=== PATIENT | female | born 1945 | race Caucasian/White ===

== ENCOUNTER → 2017-05-14 | Outpatient (CLI) | payer OTHER ==
[~2017-05-14] MED LIST: ASPIRIN ADULT L81 M1 PO; AUGMENTIN 875875 MG PO; BACTRIM DS 8001 TA1 PO; BP MED; OMEPRAZOLE D/R20 MG PO; PYRIDIUM200 MG PO; TYLENOL W/CODEI1 TA2 PO; VERAPAMIL240 MG PO
--- NOTE | ~2017-05-14 | ST ---
[place], [place] EXERCISE STRESS TEST REPORT [id number] UNIT #: [id number] ROOM: DOCTOR: BRENDON OSBORNE MD BIRTHDATE: [birth year] DOS: 05/14/2017 Lexiscan portion of the Lexiscan Cardiolite. Baseline cardiogram, normal sinus rhythm with ST depression in the lateral leads, 0.4 mg of Lexiscan, duration of 10 seconds of a 1-minute test duration. There is mild ST depression in the lateral leads. With Lexiscan, no chest discomfort. Lexiscan isolated PVCs. Blood pressure and heart rate response was normal. FINAL IMPRESSION: Mildly abnormal EKG response with mild ST depression in the lateral leads. The patient had chest pressure, no chest pain. Blood pressure and heart rate normal. Nuclear images will be reported separately. BRENDON OSBORNE MD CM:STRESS:EXERCISE STRESS TEST REPORT [id number] BRENDON OSBORNE MD
== END | disposition home or self-care (01) ==
LOC: CARD 02:25
DX: R94.31 Abnormal electrocardiogram [ECG] [EKG] (principal); R07.89 Other chest pain

== ENCOUNTER → 2017-07-11 | Outpatient (CLI) | payer OTHER ==
[2017-07-11 10:16] LABS: BASO % 0.5 % (0.0-1.0); EOS # 0.1 10*3/uL (0.0-0.4); EOS % 0.9 % (1.0-4.0); HEMATOCRIT 38.5 % (37.0-47.0); HEMOGLOBIN 13.6 g/dl (12.0-16.0); LYMPH # 2.2 10*3/uL (1.3-4.4); LYMPH % 27.4 % (27.0-41.0); MEAN CELL VOLUME 89.5 fl (81.0-99.0); MEAN CORPUSCULAR HGB 31.6 pg (27.0-31.0); MEAN CORPUSCULAR HGB CONC 35.3 g/dl (33.0-37.0); MEAN PLATELET VOLUME 8.4 fl (9.6-12.3); MONO # 0.8 10*3/uL (0.1-1.0); MONO % 10.4 % (3.0-9.0); NEUT # 4.9 10*3/uL (2.3-7.9); NEUT % 60.4 % (47.0-73.0); PLATELET COUNT AUTOMATED 344 10*3/uL (130-400); RED CELL DISTRI WIDTH 12.9 % (0-14.5); WHITE BLOOD COUNT 8.1 10*3/uL (4.8-10.8)
[2017-07-11 10:41] LABS: BUN 7 mg/dl (7-24); CARBON DIOXIDE 26 mmol/L (21-32); CHLORIDE 96 mmol/L (98-107); CHOLESTEROL 235 mg/dL (<200); EST GLOM FILT AFRICAN AMERICAN > 60 ml/min; GLUCOSE 94 mg/dL (65-99); HDL CHOLESTEROL 110 mg/dl (40-60); LDL CHOLESTEROL 114 mg/dL (9-159); POTASSIUM 4.7 mmol/L (3.5-5.1); SODIUM 131 mmol/L (136-145); TRIGLYCERIDES 54 mg/dl (<150); VLDL CHOLESTEROL 11 mg/dL (6-40)
== END | disposition home or self-care (01) ==
LOC: LAB 09:36
PROVIDERS: Family Medicine
DX: I10 Essential (primary) hypertension (principal); K21.9 Gastro-esophageal reflux disease without esophagitis

== ENCOUNTER 2018-08-24 11:57 | Emergency (ER) | payer OTHER ==
[~2018-08-24] VITALS: Ht 157.4 cm; Wt 67.1 kg
== END 2018-08-24 13:32 | disposition home or self-care (01) ==
LOC: ED 11:57
DX: S52.592A Other fractures of lower end of left radius, initial encounter for closed fracture (principal); Z79.899 Other long term (current) drug therapy; Z79.82 Long term (current) use of aspirin; W07.XXXA Fall from chair, initial encounter; Y93.89 Activity, other specified; Y92.89 Other specified places as the place of occurrence of the external cause; Y99.8 Other external cause status

== ENCOUNTER → 2019-06-18 | Outpatient (CLI) | payer OTHER ==
[2019-06-18 10:25] LABS: CHOLESTEROL 241 mg/dL (<200); HDL CHOLESTEROL 119 mg/dl (40-60); LDL CHOLESTEROL 111 mg/dL (9-159); TRIGLYCERIDES 57 mg/dl (<150); VLDL CHOLESTEROL 11 mg/dL (6-40)
== END | disposition home or self-care (01) ==
LOC: LAB 09:34
PROVIDERS: Family Medicine
DX: E78.2 Mixed hyperlipidemia (principal)

== ENCOUNTER → 2019-07-01 | Outpatient (CLI) | payer OTHER | END | disposition home or self-care (01) | LOC: US 11:02 | DX: M79.604 Pain in right leg (principal); M79.605 Pain in left leg; R09.89 Other specified symptoms and signs involving the circulatory and respiratory systems; R60.0 Localized edema; R06.02 Shortness of breath; R10.2 Pelvic and perineal pain; R10.31 Right lower quadrant pain; I25.10 Atherosclerotic heart disease of native coronary artery without angina pectoris; Z91.81 History of falling ==

== ENCOUNTER → 2019-11-06 | Outpatient (CLI) | payer OTHER | END | disposition home or self-care (01) | LOC: RAD 08:42 | DX: M81.0 Age-related osteoporosis without current pathological fracture (principal); M16.11 Unilateral primary osteoarthritis, right hip; I10 Essential (primary) hypertension; Z78.0 Asymptomatic menopausal state; Z90.710 Acquired absence of both cervix and uterus ==

== ENCOUNTER 2020-10-13 12:08 | Inpatient (IN) | payer OTHER ==
[2020-10-13] VITALS (7 sets, daily range): BP systolic 125–157; BP diastolic 61–73
[~2020-10-13] VITALS: Ht 154.9 cm; Wt 66.8 kg
[2020-10-13 12:47] LABS: BASO % 0.3 % (0.0-1.0); EOS # 0.2 10*3/uL (0.0-0.4); EOS % 2.6 % (1.0-4.0); HEMATOCRIT 40.2 % (37.0-47.0); LYMPH # 0.9 10*3/uL (1.3-4.4); MEAN CELL VOLUME 87.4 fl (81.0-99.0); MEAN CORPUSCULAR HGB 30.7 pg (27.0-31.0); MEAN CORPUSCULAR HGB CONC 35.1 g/dl (33.0-37.0); MEAN PLATELET VOLUME 8.8 fl (9.6-12.3); MONO # 0.6 10*3/uL (0.1-1.0); MONO % 10.1 % (3.0-9.0); NEUT # 4.1 10*3/uL (2.3-7.9); NEUT % 71.3 % (47.0-73.0); PLATELET COUNT AUTOMATED 306 10*3/uL (130-400); RED CELL DISTRI WIDTH 11.8 % (0-14.5); WHITE BLOOD COUNT 5.8 10*3/uL (4.8-10.8)
[2020-10-13 12:58] LABS: ACT PARTIAL THROMBO TIME 28.9 SECONDS (20.0-32.1); INTERNATIONAL NORM RATIO 0.9 (2.0-3.5)
[2020-10-13 13:04] LABS: ALBUMIN 3.6 gm/dl (3.1-4.5); ALKALINE PHOSPHATASE 84 U/L (45-117); BUN 15 mg/dl (7-24); CHLORIDE 96 mmol/L (98-107); CREATININE 0.82 mg/dL (0.55-1.02); POTASSIUM 3.3 mmol/L (3.5-5.1); SGOT/AST 22 IU/L (3-35); SGPT/ALT 17 U/L (12-78); SODIUM 130 mmol/L (136-145); TOTAL PROTEIN 7.8 gm/dL (6.4-8.2)
[2020-10-13 13:05] LABS: TROPONIN I < 0.015 ng/ml (<0.045)
--- NOTE | 2020-10-13 14:14 | NUR ---
PT RESTING IN BED WITH CALL LIGHT IN REACH.NO NEEDS AT THIS TIME.
--- NOTE | 2020-10-13 14:28 | NUR ---
PT'S FAMILY UPDATED AND TO CALL BACK LATER FOR ADDITIONAL UPDATE ON PLAN OF CARE.
--- NOTE | 2020-10-13 16:43 | NUR ---
PT IS EATING DINNER TRAY. PATIENT WITHOUT COMPLAINTS. CALL LIGHT IN REACH.
--- NOTE | 2020-10-13 22:52 | NUR ---
A 75, admitted to 4E, under the services of AMEE Benavides DO with a diagnosis of SUSPECTED COVID-19. Chief complaint is SHORTNESS OF BREATH. Patient arrived via stretcher from ER. Monitor applied. Initial assessment completed. Vital signs taken and recorded. AMEE BENAVIDES DO notified of admission to the unit. Orders received. See assessment for past medical history, medications and allergies. Patient and/or family oriented to unit. [facility] visitation policy reviewed. Clothing/patient valuable form completed. HUANG KEEN
[2020-10-13] MEDS ORDERED: ROSUVASTATIN CA10 MG PO (23:11)
[2020-10-14] VITALS: BP 121/60
--- NOTE | 2020-10-14 07:21 | NUR ---
Shift chart check completed.24 HR chart check completed.
[2020-10-14 07:59] LABS: BASO % 0.2 % (0.0-1.0); EOS % 0.2 % (1.0-4.0); HEMATOCRIT 36.3 % (37.0-47.0); LYMPH # 1.1 10*3/uL (1.3-4.4); LYMPH % 22.6 % (27.0-41.0); MEAN CELL VOLUME 87.9 fl (81.0-99.0); MEAN CORPUSCULAR HGB 30.5 pg (27.0-31.0); MEAN CORPUSCULAR HGB CONC 34.7 g/dl (33.0-37.0); MEAN PLATELET VOLUME 9.1 fl (9.6-12.3); MONO # 0.6 10*3/uL (0.1-1.0); MONO % 12.5 % (3.0-9.0); NEUT # 3.1 10*3/uL (2.3-7.9); NEUT % 64.3 % (47.0-73.0); PLATELET COUNT AUTOMATED 304 10*3/uL (130-400); RED BLOOD COUNT 4.13 10*6/uL (4.10-5.10); RED CELL DISTRI WIDTH 11.8 % (0-14.5); WHITE BLOOD COUNT 4.9 10*3/uL (4.8-10.8)
[2020-10-14 08:00] VITALS: BP 130/80; BP 145/58
[2020-10-14 08:25] LABS: ALKALINE PHOSPHATASE 69 U/L (45-117); BUN 11 mg/dl (7-24); CHLORIDE 100 mmol/L (98-107); CREATININE 0.65 mg/dL (0.55-1.02); LDH 157 U/L (84-246); POTASSIUM 3.6 mmol/L (3.5-5.1); SGOT/AST 18 IU/L (3-35); SGPT/ALT 16 U/L (12-78); SODIUM 132 mmol/L (136-145); TOTAL PROTEIN 6.8 gm/dL (6.4-8.2)
--- NOTE | 2020-10-14 09:00 | NUR ---
[employer] Consultant in to talk to patient. Patient states lives at home with . There are no steps in the home. Physician: ambika chau Pharmacy: [facility] health services: none Patient's level of ADLs: INDEPENDENT Patient has working utilities: all working DME: none Follow-up physician's appointment after d/c: will be amde by hospitalist nurse director upon discharge Does patient want to access PORTAL?: no Discharge plan discussed with patient, she lives at home with hsenmanuel, she is independent in adls and ambulation, no home oxygen, states she has inhalers she uses. patient stated she would return home when discharged. discussed with her [facility] and educated her on the services they provide. she declined any home needs at this time, case management will follow. LEE RAYMOND
--- NOTE | 2020-10-14 10:32 | NUR ---
ON ASSESSMENT PT ALERT, ORIENTED, IN NO ACUTE DISTRESS. OCCASIONAL CONGESTED COUGH.
[2020-10-14 12:00] VITALS: BP 131/58
[2020-10-14 16:00] VITALS: BP 138/65
[2020-10-14 20:00] VITALS: BP 131/65
--- NOTE | 2020-10-14 20:00 | NUR ---
PT RESTING IN BED. RESP-EASY AND REGULAR. OXYGEN IN USE. NO C/O AT THIS TIME. CALL LIGHT IN REACH.
--- NOTE | 2020-10-14 22:45 | NUR ---
PLACED PATIENT ON NOCTURNAL PULSE OX PER ORDER
[2020-10-15] VITALS: BP 138/59
--- NOTE | 2020-10-15 | NUR ---
PT RESTING IN BED. NO C/O AT THIS TIME. NO C/O AT THIS TIME. CALL LIGHT IN REACH. SEE SHIFT ASSESSMENT.
--- NOTE | 2020-10-15 04:30 | NUR ---
SLEEPING IN BED. RESP-EASY AND REGULAR. CALL LIGHT IN REACH.
--- NOTE | 2020-10-15 06:00 | NUR ---
PT AWAKE LYING ON HER LEFT SIDE. RESP-EASY AND REGULAR. NO C/O AT THIS TIME. CALL LIGHT IN REACH.
[2020-10-15 06:21] LABS: HEMATOCRIT 35.7 % (37.0-47.0); MEAN CELL VOLUME 88.6 fl (81.0-99.0); MEAN CORPUSCULAR HGB 30.8 pg (27.0-31.0); MEAN CORPUSCULAR HGB CONC 34.7 g/dl (33.0-37.0); MEAN PLATELET VOLUME 8.8 fl (9.6-12.3); PLATELET COUNT AUTOMATED 305 10*3/uL (130-400); RED BLOOD COUNT 4.03 10*6/uL (4.10-5.10); RED CELL DISTRI WIDTH 11.9 % (0-14.5); WHITE BLOOD COUNT 4.1 10*3/uL (4.8-10.8)
[2020-10-15 06:37] LABS: BUN 10 mg/dl (7-24); CHLORIDE 101 mmol/L (98-107); CREATININE 0.58 mg/dL (0.55-1.02); POTASSIUM 3.6 mmol/L (3.5-5.1); SODIUM 132 mmol/L (136-145)
[2020-10-15 06:49] LABS: ATYPICAL LYMPHS 1 % (0-0); TOTAL CELLS COUNTED 100 #CELLS
[2020-10-15 06:54] LABS: PLATELET SUFFICIENCY NORMAL (NORMAL)
[2020-10-15 10:01] LABS: FERRITIN 300.3 ng/mL (10.0-291.0)
[2020-10-15 10:57] LABS: ABG BASE EXCESS 0.3 mmol/L (-2.0-2.0); ARTERIAL BLOOD GAS PH 7.485 (7.35-7.45)
[2020-10-15 12:00] VITALS: BP 137/54
--- NOTE | 2020-10-15 15:07 | NUR ---
0800 Assumed care of pt. Report received. Pt AOX4, bed in low position, call light in reach. All needs met at this time, per pt. Pt remains on COVID isolation precautions, and remains on 2L NC. 1130 MD at bedside. Per MD, possible discharge tomorrow, will continue to monitor pt's need for O2. Pt agreeable.
[2020-10-15 16:00] VITALS: BP 149/61
[2020-10-15 20:00] VITALS: BP 116/83
[2020-10-16] VITALS: BP 139/60
[2020-10-16 04:00] VITALS: BP 139/60
[2020-10-16 08:00] VITALS: BP 168/63
--- NOTE | 2020-10-16 09:03 | NUR ---
0700 Assumed care of pt. Pt resting in bed, AOX4, breathing easy on room air, VS obtained. Call light in reach, all needs met at this time. Clustered care as pt is in COVID isolation. Personal care items replenished in room, breakfast tray delivered to bedside. Will continue to monitor. 0900 ID consult called to Dr. Maya's service. 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 Will continue to monitor.
--- NOTE | 2020-10-16 10:00 | NUR ---
HOME O2 ASSESSMENT: PRE BP: 168/63, HR 70, RR 16, PULSE OX 93% ON ROOM AIR AT REST. AMBULATED PATIENT IN ROOM, PULSE OX DECREASED TO 88% ON ROOM AIR WHILE AMBULATING. PLACED 2 L/M ON PATIENT, SAT >93% WHILE AMBULATING. POST BP: 151/72, HR 72, RR 18, PULSE OX 96% ON 2 L/M AT REST. RN AND DR. PIPER NOTIFIED.
--- NOTE | 2020-10-16 10:23 | NUR ---
Spoke to Maranda at [facility]'s answering service regarding setting up O2 at home. Prescription received from Dr. Cary for O2 @ 2L nc continuous. Information given. Notified of need of tank delivery to hospital for transport home. Maranda will contact special delivery carrier. Awaiting return call. rating clerk notified.
--- NOTE | 2020-10-16 10:41 | NUR ---
Received call from Scar at [facility]. He stated he is calling the patients to set up oxygen at home. He will be here at the hospital around 12 noon to drop off a tank and then go to the home to set up the home oxygen. BERTRAND Eli notified.
--- NOTE | 2020-10-16 10:46 | NUR ---
Nurse and Dr. Cary notified of O2 delivery in approximately an hour and a half.
[2020-10-16 12:00] VITALS: BP 127/58
--- NOTE | 2020-10-16 13:17 | NUR ---
Portable O2 has been delivered by [facility] and is at the nurse's station.
[2020-10-16 16:00] VITALS: BP 141/65
[2020-10-16 20:30] VITALS: BP 153/75
[2020-10-17] VITALS (7 sets, daily range): BP systolic 115–153; BP diastolic 56–69
--- NOTE | 2020-10-17 08:56 | NUR ---
SAP CONSULTANT RECEIVED CALL FROM [facility]. SHE STATED THAT THEIR ACCESS CONSULTANT WAS INFORMED YESTERDAY THE PATIENT WOULD NOT BE DISCHARGING. SAP CONSULTANT LOOKED INTO THIS AND EXPLAINED THAT DISCHARGE WAS HELD DUE TO ID. SAP CONSULTANT EXPLAINED WOULD CONTACT THEM WHEN PATIENT IS BEING DISCHARGED AT [phone]. PORTABLE TANK HAS ALREADY ARRIVED AT THIS FACILITY.
[2020-10-17] MEDS ORDERED: DECADRON4 MG PO (17:48)
[2020-10-17] MEDS ORDERED: XARELTO10 MG PO (17:48)
--- NOTE | 2020-10-17 19:36 | NUR ---
Spoke to , Pepe, to see if O2 had been set up at home. O2 has not been set up. Spoke to Vivi at [facility]. She started the account and reached out to the control room helper regional flatbed truck driver. Awaiting call from the control room helper regional flatbed truck driver.
--- NOTE | 2020-10-17 19:40 | NUR ---
Spoke to , Pepe, regarding patient discharging tonight as long as home O2 has been set up. Informed CM will let him know when CM hears back from the custom decorating consultant paratransit driver.
--- NOTE | 2020-10-17 19:50 | NUR ---
Received call from Scar at [facility] [place]. He will head to the patient's home now to set up O2 and will return call to when O2 is set up. Nurse notified.
--- NOTE | 2020-10-17 21:39 | NUR ---
Received call from [facility] sanitation worker cleaning machinery snaker tractor driverScar. Patient is all set up for her home O2. Nurse notified.
--- NOTE | 2020-10-17 21:45 | NUR ---
Spoke to regarding discharge. He will be at the hospital to pick patient up between 15-20 minutes. Nurse notified.
--- NOTE | 2020-10-17 22:50 | NUR ---
DISCHARGE ORDERS NOTED AND PT DISCHARGE ORDERS PRINTED AND REVIEWED WITH PATIENT. PT VERBALIZES UNDERSTANDING OF DISCHARGE ORDERS AND ALL PERTINENT QUESTIONS ANSWERED BY THIS RN AT THIS TIME. PT HAS PERSONAL BELONGINGS AT BEDSIDE AND WILL BE ASSISTED BY PATIENT ATTENTDANT TO HELP GATHER BELONGINGS. LEFT FOREARM IV REMOVED. PT READY FOR TRANSPORT TO PERSONAL VEHICLE, DRIVEN BY PATIENT'S , TO BE DRIVEN HOME.
== END 2020-10-18 01:24 | disposition home or self-care (01) | DRG 177 ==
LOC: ED 12:08 → 4E 16:20 → EDHOLD 16:20 → 4E 18:43
PROVIDERS: Emergency Medicine; ADMIT Student in an Organized Health Care Education/Training Program; ATTEND Student in an Organized Health Care Education/Training Program
PROC: XW043E5 Introduction of Remdesivir Anti-infective into Central Vein, Percutaneous Approach, New Technology Group 5 (ICD-10-PCS; principal; 2020-10-17)
DX: U07.1 COVID-19 (principal); J18.9 Pneumonia, unspecified organism; J44.1 Chronic obstructive pulmonary disease with (acute) exacerbation; E87.1 Hypo-osmolality and hyponatremia; E44.0 Moderate protein-calorie malnutrition; J44.0 Chronic obstructive pulmonary disease with (acute) lower respiratory infection; Z20.828 Contact with and (suspected) exposure to other viral communicable diseases; E66.3 Overweight; E87.6 Hypokalemia; E87.8 Other disorders of electrolyte and fluid balance, not elsewhere classified; R73.9 Hyperglycemia, unspecified; I10 Essential (primary) hypertension; K21.9 Gastro-esophageal reflux disease without esophagitis; Z68.26 Body mass index [BMI] 26.0-26.9, adult; Z91.041 Radiographic dye allergy status; Z88.8 Allergy status to other drugs, medicaments and biological substances; Z90.710 Acquired absence of both cervix and uterus; Z87.891 Personal history of nicotine dependence; Z90.49 Acquired absence of other specified parts of digestive tract; Z79.82 Long term (current) use of aspirin; Z79.899 Other long term (current) drug therapy

== ENCOUNTER → 2021-01-19 | Outpatient (CLI) | payer OTHER ==
[~2021-01-19] MED LIST changes: +DECADRON4 MG PO; +PROAIR HFA8.5 GM INH; +ROSUVASTATIN CA10 MG PO; +XARELTO10 MG PO; +ZESTORETIC 10-1 EACH PO
== END | disposition home or self-care (01) ==
LOC: CT 10:37
PROVIDERS: ATTEND Family Medicine
DX: R91.8 Other nonspecific abnormal finding of lung field (principal)

== ENCOUNTER 2021-02-18 14:38 | Inpatient (IN) | payer OTHER ==
[~2021-02-18] VITALS: Ht 154.9 cm; Wt 67.3 kg
[~2021-02-18 14:38] MED LIST changes: -PROAIR HFA8.5 GM INH; -ZESTORETIC 10-1 EACH PO
[2021-02-18 14:44] VITALS: BP 194/89
[2021-02-18 15:21] LABS: BASO # 0.1 10*3/uL (0.0-0.1); BASO % 0.6 % (0.0-1.0); EOS % 0.3 % (1.0-4.0); HEMATOCRIT 37.8 % (37.0-47.0); LYMPH # 1.5 10*3/uL (1.3-4.4); LYMPH % 16.5 % (27.0-41.0); MEAN CELL VOLUME 86.1 fl (81.0-99.0); MEAN CORPUSCULAR HGB 30.1 pg (27.0-31.0); MEAN CORPUSCULAR HGB CONC 34.9 g/dl (33.0-37.0); MEAN PLATELET VOLUME 7.8 fl (9.6-12.3); MONO # 0.8 10*3/uL (0.1-1.0); MONO % 8.8 % (3.0-9.0); NEUT # 6.5 10*3/uL (2.3-7.9); NEUT % 73.5 % (47.0-73.0); PLATELET COUNT AUTOMATED 350 10*3/uL (130-400); RED BLOOD COUNT 4.39 10*6/uL (4.10-5.10); RED CELL DISTRI WIDTH 11.9 % (0-14.5); WHITE BLOOD COUNT 8.9 10*3/uL (4.8-10.8)
[2021-02-18 15:36] LABS: ALBUMIN 4.2 gm/dl (3.1-4.5); ALKALINE PHOSPHATASE 95 U/L (45-117); BUN 10 mg/dl (7-24); CHLORIDE 92 mmol/L (98-107); CREATININE 0.74 mg/dL (0.55-1.02); LIPASE 85 U/L (73-393); POTASSIUM 4.2 mmol/L (3.5-5.1); SGOT/AST 21 IU/L (3-35); SGPT/ALT 22 U/L (12-78); SODIUM 123 mmol/L (136-145); TOTAL PROTEIN 7.6 gm/dL (6.4-8.2)
[2021-02-18 17:07] LABS: BILIRUBIN Negative (Negative); BLOOD Negative (Negative); CLARITY Clear (Clear); COLOR Yellow (Yellow); GLUCOSE Negative (Negative); KETONE Negative (Negative); LEUKO ESTERASE 3+ (Negative); NITRITE Negative (Negative); PH 6.5 (4.5-8.0)
[2021-02-18 17:14] LABS: BACTERIA 1+; WBC 21-30 wbc/hpf (0-5)
[2021-02-18] MEDS ORDERED: PROAIR HFA8.5 GM INH (17:39)
[2021-02-18 17:57] VITALS: BP 177/77
[2021-02-18 20:00] VITALS: BP 144/62
[2021-02-18 20:30] VITALS: BP 144/62
[2021-02-18 20:38] LABS: BUN 11 mg/dl (7-24); CHLORIDE 91 mmol/L (98-107); CREATININE 0.74 mg/dL (0.55-1.02); SODIUM 123 mmol/L (136-145)
[2021-02-19] VITALS: BP 155/65
[2021-02-19 06:34] LABS: BASO % 0.6 % (0.0-1.0); EOS # 0.1 10*3/uL (0.0-0.4); EOS % 1.8 % (1.0-4.0); HEMATOCRIT 34.7 % (37.0-47.0); LYMPH # 1.5 10*3/uL (1.3-4.4); LYMPH % 22.2 % (27.0-41.0); MEAN CELL VOLUME 87.2 fl (81.0-99.0); MEAN CORPUSCULAR HGB 29.9 pg (27.0-31.0); MEAN CORPUSCULAR HGB CONC 34.3 g/dl (33.0-37.0); MEAN PLATELET VOLUME 8.2 fl (9.6-12.3); MONO # 0.7 10*3/uL (0.1-1.0); MONO % 10.9 % (3.0-9.0); NEUT # 4.3 10*3/uL (2.3-7.9); NEUT % 64.1 % (47.0-73.0); PLATELET COUNT AUTOMATED 293 10*3/uL (130-400); RED BLOOD COUNT 3.98 10*6/uL (4.10-5.10); RED CELL DISTRI WIDTH 11.8 % (0-14.5); WHITE BLOOD COUNT 6.7 10*3/uL (4.8-10.8)
[2021-02-19 06:44] LABS: BUN 7 mg/dl (7-24); CHLORIDE 97 mmol/L (98-107); POTASSIUM 3.9 mmol/L (3.5-5.1); SODIUM 128 mmol/L (136-145)
[2021-02-19 06:49] LABS: CREATININE 0.59 mg/dL (0.55-1.02)
[2021-02-19 08:00] VITALS: BP 148/59
[2021-02-19] MEDS ORDERED: ZESTORETIC 10-1 EACH PO (10:04)
[2021-02-19 12:00] VITALS: BP 150/75
[2021-02-19 16:00] VITALS: BP 133/68
[2021-02-19 20:00] VITALS: BP 128/55
[2021-02-20] VITALS: BP 121/48
[2021-02-20 07:13] LABS: BUN 10 mg/dl (7-24); CHLORIDE 98 mmol/L (98-107); POTASSIUM 4.2 mmol/L (3.5-5.1); SODIUM 130 mmol/L (136-145)
[2021-02-20 07:22] LABS: CREATININE 0.72 mg/dL (0.55-1.02)
[2021-02-20 08:00] VITALS: BP 126/60
== END 2021-02-20 13:36 | disposition home or self-care (01) | DRG 690 ==
LOC: ED 14:38 → 5E 17:37 → EDHOLD 17:37 → 5E 20:33
PROVIDERS: Internal Medicine; Internal Medicine Nephrology; Physician Assistant; ADMIT Internal Medicine; ATTEND Internal Medicine
DX: N39.0 Urinary tract infection, site not specified (principal); E87.1 Hypo-osmolality and hyponatremia; E87.8 Other disorders of electrolyte and fluid balance, not elsewhere classified; K21.9 Gastro-esophageal reflux disease without esophagitis; J44.9 Chronic obstructive pulmonary disease, unspecified; R73.9 Hyperglycemia, unspecified; I10 Essential (primary) hypertension; D64.9 Anemia, unspecified; Z90.710 Acquired absence of both cervix and uterus; Z79.51 Long term (current) use of inhaled steroids; Z79.82 Long term (current) use of aspirin; Z79.899 Other long term (current) drug therapy; Z88.8 Allergy status to other drugs, medicaments and biological substances; Z90.49 Acquired absence of other specified parts of digestive tract

== ENCOUNTER → 2021-06-20 | Outpatient (CLI) | payer OTHER ==
[~2021-06-20] MED LIST changes: +PROAIR HFA8.5 GM INH; +ZESTORETIC 10-1 EACH PO
== END | disposition home or self-care (01) ==
LOC: CT 08:48
PROVIDERS: ATTEND Physical Therapist
DX: R91.8 Other nonspecific abnormal finding of lung field (principal)

== ENCOUNTER → 2021-09-18 | Outpatient (CLI) | payer OTHER ==
[2021-09-18 09:36] LABS: BASO # 0.1 10*3/uL (0.0-0.1); BASO % 0.6 % (0.0-1.0); EOS # 0.1 10*3/uL (0.0-0.4); EOS % 1.4 % (1.0-4.0); HEMATOCRIT 40.7 % (37.0-47.0); LYMPH # 2.1 10*3/uL (1.3-4.4); MEAN CELL VOLUME 92.1 fl (81.0-99.0); MEAN CORPUSCULAR HGB 30.8 pg (27.0-31.0); MEAN CORPUSCULAR HGB CONC 33.4 g/dl (33.0-37.0); MEAN PLATELET VOLUME 7.8 fl (9.6-12.3); MONO # 0.7 10*3/uL (0.1-1.0); MONO % 8.6 % (3.0-9.0); NEUT # 4.8 10*3/uL (2.3-7.9); PLATELET COUNT AUTOMATED 348 10*3/uL (130-400); RED BLOOD COUNT 4.42 10*6/uL (4.10-5.10); RED CELL DISTRI WIDTH 13.1 % (0-14.5); WHITE BLOOD COUNT 7.8 10*3/uL (4.8-10.8)
[2021-09-18 10:04] LABS: ALBUMIN 4.1 gm/dl (3.1-4.5); ALKALINE PHOSPHATASE 95 U/L (45-117); BUN 9 mg/dl (7-24); CHLORIDE 98 mmol/L (98-107); CHOLESTEROL 191 mg/dL (<200); CREATININE 0.71 mg/dL (0.55-1.02); LDL CHOLESTEROL 64 mg/dL (9-159); POTASSIUM 4.5 mmol/L (3.5-5.1); SGOT/AST 15 IU/L (3-35); SGPT/ALT 20 U/L (12-78); SODIUM 132 mmol/L (136-145); TOTAL PROTEIN 8.1 gm/dL (6.4-8.2); TRIGLYCERIDES 73 mg/dl (<150)
== END | disposition home or self-care (01) ==
LOC: LAB 09:18
PROVIDERS: ATTEND Family Medicine
DX: E78.2 Mixed hyperlipidemia (principal); R53.81 Other malaise; I10 Essential (primary) hypertension; J44.0 Chronic obstructive pulmonary disease with (acute) lower respiratory infection

== ENCOUNTER → 2022-01-12 | Outpatient (CLI) | payer OTHER | END | disposition home or self-care (01) | LOC: CT 16:00 | PROVIDERS: ATTEND Physical Therapist | DX: R91.8 Other nonspecific abnormal finding of lung field (principal); J44.9 Chronic obstructive pulmonary disease, unspecified; R59.0 Localized enlarged lymph nodes ==

== ENCOUNTER → 2023-09-04 | Outpatient (CLI) | payer MEDICARE ==
[2023-09-04 09:52] LABS: BUN 5 mg/dl (9-23); CHLORIDE 98 mmol/L (98-107); CHOLESTEROL 197 mg/dL (<200); LDL CHOLESTEROL 51 mg/dL (9-159); POTASSIUM 4.1 mmol/L (3.4-5.1); TRIGLYCERIDES 57 mg/dl (<150)
== END | disposition home or self-care (01) ==
LOC: LAB 09:18
PROVIDERS: ATTEND Family Medicine
DX: I10 Essential (primary) hypertension (principal); E78.2 Mixed hyperlipidemia; R73.9 Hyperglycemia, unspecified

== ENCOUNTER → 2023-10-11 | Outpatient (CLI) | payer OTHER | END | disposition home or self-care (01) | LOC: CARD 00:13 | PROVIDERS: ATTEND Internal Medicine Cardiovascular Disease | DX: I20.89 Other forms of angina pectoris (principal); R06.09 Other forms of dyspnea; I10 Essential (primary) hypertension; R06.02 Shortness of breath ==

== ENCOUNTER → 2023-10-21 | Outpatient (CLI) | payer MEDICARE | END | disposition home or self-care (01) | LOC: CARD 01:41 | PROVIDERS: ATTEND Internal Medicine Cardiovascular Disease | DX: I08.1 Rheumatic disorders of both mitral and tricuspid valves (principal); I27.20 Pulmonary hypertension, unspecified; E78.2 Mixed hyperlipidemia; I10 Essential (primary) hypertension ==

== ENCOUNTER → 2023-12-03 | Outpatient (CLI) | payer MEDICARE ==
[2023-12-03 17:39] LABS: BASO # 0.1 10*3/uL (0.0-0.1); BASO % 0.8 % (0.0-1.0); EOS # 0.1 10*3/uL (0.0-0.4); EOS % 0.6 % (1.0-4.0); HEMATOCRIT 41.3 % (37.0-47.0); LYMPH # 1.9 10*3/uL (1.3-4.4); LYMPH % 23.7 % (27.0-41.0); MEAN CELL VOLUME 94.1 fl (81.0-99.0); MEAN CORPUSCULAR HGB CONC 32.9 g/dl (33.0-37.0); MEAN PLATELET VOLUME 8.7 fl (9.6-12.3); MONO # 0.8 10*3/uL (0.1-1.0); MONO % 10.6 % (3.0-9.0); NEUT % 63.8 % (47.0-73.0); PLATELET COUNT AUTOMATED 712 10*3/uL (130-400); RED BLOOD COUNT 4.39 10*6/uL (4.10-5.10); RED CELL DISTRI WIDTH 12.4 % (0-14.5); WHITE BLOOD COUNT 7.9 10*3/uL (4.8-10.8)
[2023-12-03 17:50] LABS: ALKALINE PHOSPHATASE 93 U/L (46-116); BUN 8 mg/dl (9-23); CHLORIDE 101 mmol/L (98-107); POTASSIUM 3.6 mmol/L (3.4-5.1); SGPT/ALT 15 U/L (5-49); TOTAL PROTEIN 7.5 gm/dL (6.0-8.0)
== END | disposition home or self-care (01) ==
LOC: RAD 15:47
PROVIDERS: Student in an Organized Health Care Education/Training Program; ATTEND Family Medicine
DX: R91.8 Other nonspecific abnormal finding of lung field (principal); R06.02 Shortness of breath; E87.1 Hypo-osmolality and hyponatremia; Z86.16 Personal history of COVID-19; Z87.09 Personal history of other diseases of the respiratory system

== ENCOUNTER 2024-06-29 19:59 | Emergency (ER) | payer MEDICARE ==
[~2024-06-29] VITALS: Ht 154.9 cm; Wt 59.0 kg
[2024-06-29] MEDS ORDERED: LISINOPRIL40 MG PO (20:07)
[2024-06-29 20:18] LABS: BASO # 0.1 10*3/uL (0.0-0.1); BASO % 0.6 % (0.0-1.0); EOS # 0.1 10*3/uL (0.0-0.4); EOS % 1.2 % (1.0-4.0); HEMATOCRIT 38.1 % (37.0-47.0); LYMPH # 3.5 10*3/uL (1.3-4.4); LYMPH % 34.9 % (27.0-41.0); MEAN CELL VOLUME 89.2 fl (81.0-99.0); MEAN CORPUSCULAR HGB CONC 33.6 g/dl (33.0-37.0); MEAN PLATELET VOLUME 8.3 fl (9.6-12.3); MONO % 9.7 % (3.0-9.0); NEUT # 5.3 10*3/uL (2.3-7.9); NEUT % 53.3 % (47.0-73.0); PLATELET COUNT AUTOMATED 340 10*3/uL (130-400); RED BLOOD COUNT 4.27 10*6/uL (4.10-5.10); RED CELL DISTRI WIDTH 12.7 % (0-14.5); WHITE BLOOD COUNT 9.9 10*3/uL (4.8-10.8)
[2024-06-29 20:38] LABS: ALKALINE PHOSPHATASE 115 U/L (46-116); BUN 11 mg/dl (9-23); CHLORIDE 101 mmol/L (98-107); POTASSIUM 3.3 mmol/L (3.4-5.1); SGPT/ALT 12 U/L (5-49)
[2024-06-29] MEDS ORDERED: Lidocaine Hydrochloride 15 ML UDC PO STA (23:41)
[2024-06-29] MEDS ORDERED: Dicyclomine Hydrochloride 20 MG/10 ML OSYR PO STA (23:41)
[2024-06-29] MEDS ORDERED: MG-AL HYDROXIDE/SIMETICONE 30 ML UDC PO STA (23:41)
== END 2024-06-29 23:57 | disposition home or self-care (01) ==
LOC: ED 19:59
PROVIDERS: Internal Medicine
DX: R07.89 Other chest pain (principal); E87.8 Other disorders of electrolyte and fluid balance, not elsewhere classified; K21.9 Gastro-esophageal reflux disease without esophagitis; I12.9 Hypertensive chronic kidney disease with stage 1 through stage 4 chronic kidney disease, or unspecified chronic kidney disease; N18.31 Chronic kidney disease, stage 3a; Z90.49 Acquired absence of other specified parts of digestive tract; Z90.710 Acquired absence of both cervix and uterus; Z90.89 Acquired absence of other organs; Z87.891 Personal history of nicotine dependence

== ENCOUNTER 2024-10-12 14:19 | Emergency (ER) | payer MEDICARE ==
[~2024-10-12] VITALS: Ht 152.4 cm; Wt 59.0 kg
[~2024-10-12 14:19] MED LIST changes: +LISINOPRIL40 MG PO
[2024-10-12] MEDS ORDERED: ACETAMINOPHEN 325 MG TAB PO ONE (14:50)
== END 2024-10-12 17:55 | disposition home or self-care (01) ==
LOC: ED 14:19
DX: S92.002A Unspecified fracture of left calcaneus, initial encounter for closed fracture (principal); S93.402A Sprain of unspecified ligament of left ankle, initial encounter; I10 Essential (primary) hypertension; K21.9 Gastro-esophageal reflux disease without esophagitis; Z90.49 Acquired absence of other specified parts of digestive tract; Z90.89 Acquired absence of other organs; Z98.890 Other specified postprocedural states; Z87.891 Personal history of nicotine dependence; W17.89XA Other fall from one level to another, initial encounter; Y93.89 Activity, other specified; Y92.89 Other specified places as the place of occurrence of the external cause; Y99.8 Other external cause status